=== PATIENT | male | born 1980 | race Caucasian/White ===

== ENCOUNTER 2022-01-29 04:32 | Inpatient (IN) | payer SELFPAY ==
[2022-01-29 04:41] VITALS: BP 121/82; PULSE 96; RESP 18; TEMP 36.7; O2SAT 96; BMI 28.5
--- NOTE | 2022-01-29 04:48 | W.ED.PSYCHS ---
HPI - Psych General: Chief Complaint: Psychiatric Symptoms Stated Complaint: MHE Time Seen by Provider: 01/29/22 04:43 Source: patient Mode of arrival: ambulatory Limitations: no limitations History of Present Illness: 41-year-old male he states that he has been severely depressed. He states his recently left him causing him depression and suicidal thoughts. He states he had a plan of taking pills to kill himself he has been admitted to psych hdez before he denies any worsening proving factors denies any attempts. Associated symptoms: Reports depression and suicidal ideation Review of Systems Const: Denies: fever(s), chills, body aches or change in appetite Eyes: Denies: blurry vision or eye discomfort ENMT: Denies: throat pain or dental pain Card: Denies: chest pain Resp: Denies: dyspnea GI: Denies: abdominal pain, nausea, vomiting or diarrhea : Denies: dysuria Musc: Denies: neck pain or back pain Skin/Breast: Denies: rash Neuro: Denies: headache(s) Psych: Reports: depression and suicidal ideation Finn/Lymph: Denies: easy bruising All/Imm: Denies: urticaria Physical Exam Const: COMMON NORMALS: patient oriented x3 HENMT: COMMON NORMALS: normocephalic and atraumatic HEAD & SCALP: normocephalic and atraumatic Eye: COMMON NORMALS: Equal, round and reactive pupils present and EOMs intact bilaterally PUPIL: Yes Equal, round and reactive pupils present Neck/C-Spine: COMMON NORMALS: full ROM and supple Chest: COMMONS NORMALS: normal inspection of the chest and normal palpation of entire chest wall Resp: COMMON NORMALS: normal respiratory effort, No retractions, No use of accessory muscles and clear to auscultation bilaterally AUSCULTATION: clear to auscultation bilaterally Cardio: COMMON NORMALS: regular rate, regular rhythm and No murmurs present (Cardio) RATE: regular rate RHYTHM: regular rhythm GI: COMMON NORMALS: Normal to inspection, nondistended, normoactive bowel sounds present, Soft to palpation, non-tender and no masses PALPATION: Yes Soft to palpation Extremity: COMMON NORMALS: normal to inspection and full ROM Neuro: COMMON NORMALS: patient oriented x3, moves all extremities and no focal motor deficits Psych: COMMON NORMALS: mental status grossly normal, Normal thought process present and cooperative THOUGHT PROCESS: Normal thought process present THOUGHT CONTENT: Yes Suicidality present Skin: COMMON NORMALS: no rashes or lesions noted and no wounds GENERAL SKIN EXAM: no rashes or lesions noted Course Vital Signs: Vital signs: Vital Signs Temperature 98.1 F 01/29/22 04:41 Pulse Rate 96 01/29/22 04:41 Respiratory Rate 18 01/29/22 04:41 Blood Pressure 121/82 01/29/22 04:41 Pulse Oximetry 96 01/29/22 04:41 Oxygen Delivery Me thod 01/29/22 04:41 MDM - Psych Medical Decision Making Patient presents here with suicidal ideation with plan of overdose on pills patient placed under 96-hour hold here he is medically cleared spoke to psychiatrist and will admit. Lab Data : 01/29/22 04:45 01/29/22 04:45 Laboratory Results WBC 10.8 10^3/uL (4.0-10.0) H 01/29/22 04:45 RBC 4.95 10^6/uL (4.1-5.3) 01/29/22 04:45 Hgb 14.9 g/dL (11.7-16.6) 01/29/22 04:45 Hct 45.2 % (42.0-52.0) 01/29/22 04:45 MCV 91.3 fl (80-94) 01/29/22 04:45 MCH 30.1 pg (28.0-34.0) 01/29/22 04:45 MCHC 33.0 g/dL (30.0-36.0) 01/29/22 04:45 RDW 12.0 % (12.1-15.1) L 01/29/22 04:45 Plt Count 301 10^3/cmm (130-400) 01/29/22 04:45 MPV 9.1 fL (7.4-10.4) 01/29/22 04:45 Neut % (Auto) 77.8 % 01/29/22 04:45 Lymph % (Auto) 14.0 % 01/29/22 04:45 [place] % (Auto) 7.1 % 01/29/22 04:45 Eos % (Auto) 0.3 % 01/29/22 04:45 Baso % (Auto) 0.6 % 01/29/22 04:45 Neut # (Auto) 8.39 10^3/uL (1.8-7.7) H 01/29/22 04:45 Lymph # (Auto) 1.5 10^3/uL (0.8-4.8) 01/29/22 04:45 [place] # (Auto) 0.8 10^3/uL (0.2-0.9) 01/29/22 04:45 Eos # (Auto) 0.0 10^3/uL (0.0-0.8) 01/29/22 04:45 Baso # (Auto) 0.1 10^3/uL (0.0-0.1) 01/29/22 04:45 Nucleated RBC % (auto) 0 % 01/29/22 04:45 Nucleated RBCs # 0.0 /100WBC 01/29/22 04:45 Discharge Plan Discharge Patient Disposition: Admitted As Inpatient Clinical Impression: Suicidal ideation Condition: Stable Coding Level of Care Code ED Lawn Mower Operator for Juvenal Fwd Exam Comprehensive
[2022-01-29 04:53] LABS: Basophils # 0.1 10^3/uL (0.0-0.1); Basophils % 0.6 %; Eosinophils % 0.3 %; Hematocrit 45.2 % (42.0-52.0); Hemoglobin 14.9 g/dL (11.7-16.6); Lymphocytes # 1.5 10^3/uL (0.8-4.8); Mean Corpuscular Hemoglobin 30.1 pg (28.0-34.0); Mean Corpuscular Volume 91.3 fl (80-94); Mean Platelet Volume 9.1 fL (7.4-10.4); Monocytes # 0.8 10^3/uL (0.2-0.9); Monocytes % 7.1 %; Neutrophils # 8.39 10^3/uL (1.8-7.7); Neutrophils % 77.8 %; Nucleated Red Blood Cells % 0 %; Platelet Count 301 10^3/cmm (130-400); Red Blood Count 4.95 10^6/uL (4.1-5.3); White Blood Count 10.8 10^3/uL (4.0-10.0)
[2022-01-29 05:27] LABS: Alanine Aminotransferase 10 U/L (0-41); Alkaline Phosphatase 64 U/L (40-130); Aspartate Amino Transferase 14 U/L (0-40); Blood Urea Nitrogen 13 mg/dL (6-20); Calcium 9.9 mg/dL (8.5-10.5); Carbon Dioxide 24 mmol/L (22-29); Chloride 98 mmol/L (98-107); Creatinine Clr Calc Pharmacy 129.3441; Globulin 2.4 g/dL (1.3-4.6); Glucose 103 mg/dL (65-115); Osmolality Calculated 284 mOsm/kg (285-295); Sodium 137 mmol/L (136-145); Total Bilirubin 0.7 mg/dL (0.15-1.2); Total Protein 7.4 g/dL (6.6-8.7)
[2022-01-29 05:30] LABS: Acetaminophen < 5.0 ug/mL (10-30); Alcohol Level < 10 mg/dL (0-10); Salicylate < 0.3 mg/dL (3-10)
[2022-01-29 05:38] LABS: Amphetamines Screen Urine Positive (Negative); Barbiturates Screen Urine Negative (Negative); Benzodiazepines Screen Urine Negative (Negative); Cocaine Screen Urine Negative (Negative); Opiate Screen Urine Negative (Negative); PCP Screen Urine Negative (Negative); THC Screen Urine Positive (Negative)
--- NOTE | 2022-01-29 07:32 | PC.PHAR ---
pt states he takes no rx or otc medications-no meds pull up on ext med history
[2022-01-29 08:46] VITALS: BP 98/73; PULSE 82; RESP 18; TEMP 36.6; O2SAT 97
[2022-01-29] MEDS: hyDROXYzine 25 mg Capsule 50 MG PO (09:23)
--- NOTE | 2022-01-29 09:23 | PC.NURSE ---
PRN VISTARIL 50 MG GIVEN PO PER PT C/O ANXIETY, TEARFUL UPON ADMIT, SAD STATED HIS JUST LEFT HIM
--- NOTE | 2022-01-29 09:40 | PC.ADMIT ---
[address] Admission Note: The patient,Fabio Lopes,41 y/o, was given written information regarding hospital policies, unit procedures and contact persons. Patient's smoking status: . Vital Signs - 8 hr 01/29/22 04:41 01/29/22 08:46 01/29/22 08:46 Temperature 98.1 F 98 F Pulse Rate 96 82 Respiratory Rate 18 18 Blood Pressure 121/82 98/73 ADMITTED FROM ER VIA WHEELCHAIR AND SECURITY AT 0846 AM. PT IS ON A 96 HOUR HOLD THAT ENDS 02/04/22 AT 846 AM. PT STATES HE IS HERE DUE TO HIS LEAVING HIM YESTERDAY AND HE BECAME INCREASINGLY DEPRESSED AND SUICIDAL. PT CONTINUES TO STATE I JUST WANT TO GO TO SLEEP AND NOT WAKE UP. THIS RN ASKED IF HE HAD A PLAN PT STATED NO JUST TO SLEEP. CURRENTLY DENIES HI AND AVH AT THIS TIME. ALLERGIC TO CARBAMAZEPINE. TAKES NO HOME MEDS. STATES HE WAS HERE IN THE NPU 20 YEARS BUT NO OTHER ADMISSIONS. PT SEES NO ONE FOR PSYCH SERVICES. PT WAS ORIENTATED TO UNIT. SKIN ASSESSMENT REVEALS MULTIPLE TATTOOS, NO SKIN ISSUES. ALL QUESTIONS ANSWERED AND SUPPORT VOICED. [ End ]Oxygen Delivery Method Room Air Room Air Room Air
[2022-01-29 14:00] VITALS: BP 106/73; PULSE 86; RESP 16; TEMP 36.6; O2SAT 98
--- NOTE | 2022-01-29 17:22 | W.PM.NPUH&PS ---
Providers/Chief Complaint Admitting Physician: Brijesh Mackenzie MD Chief Complaint: MHE HPI NPU History of Present Illness Fabio Lopes is a 41 year old male who presented to the emergency department with the following report: Chief Complaint: Psychiatric Symptoms Stated Complaint: MHE Time Seen by Provider: 01/29/22 04:43 Source: patient Mode of arrival: ambulatory Limitations: no limitations History of Present Illness: 41-year-old male he states that he has been severely depressed. He states his recently left him causing him depression and suicidal thoughts. He states he had a plan of taking pills to kill himself he has been admitted to psych hdez before he denies any worsening proving factors denies any attempts. Associated symptoms: Reports depression and suicidal ideation. He was admitted to the neuropsychiatric unit for definitive treatment of those issues. He was placed on a 96-hour hold. Patient presents today reporting that he has been inpatient previously about 13 years ago and is never really had outpatient services. He reports that he did have some services while in senior care when he took medication but denies really taking medication otherwise. He reports is not currently taking medicine now and that he is here secondary to a conflict with his . He reports that she left him and he started having suicidal thoughts. He was placed on a 96-hour hold secondary to concerns about him reporting suicidal thoughts with a plan. He presents to this interview essentially solely focused on getting discharged. He had to be redirected multiple times to focus on answering the questions instead of trying to litigate being discharged. Smokes about 2 packs of cigarettes a day, has alcohol and marijuana occasionally denies any other illicit drugs. He Downplaying his use and reporting that he had treatment there was a year-long in senior care for drug and alcohol treatment but denies any outpatient services denies having any DUIs did report some legal consequences a long time ago. It took significant coaxing to get him to speak about acknowledges that his addiction is current and that after dancing around that he acknowledges that there was a reason why his UDS was positive for amphetamines in addition to the cannabis. He reports that he started having difficulty in his teens he was experimenting with drugs with his friends and he reports that he ultimately started using different drugs and getting in trouble to some degree. He denies any history of suicide attempts reports that he had significant legal issues but currently reports he is fine and he had an epiphany and that he no longer wants to hurt himself. And is not interested in treatment and was to be discharged soon as possible. Psychiatric history: As above. Substance abuse history: As above. Family history: Patient denies mental health or addiction issues on either side of the family and denies suicide attempts or completions in the family. Developmental history: There were no problems with the , or delivery, learned to walk and talk and met developmental milestones on time, and denies need for learning support, emotional support or special education classes, but did report needing speech therapy in his youth. Psychosocial history: He reports his parents were together he was born and remained together. He has an older brother and sister share the same parents denies that he did his parents have any additional children. He reports his childhood was pretty good he denies emotional physical or sexual abuse CYS involvement he did get him placement with juvenile Justice for a week at 1 point in his teens. He dropped out a school athlete as well. Here but reports he got his GED endorsed being heterosexual with his loss related to being 16 years he is been officially 1 time is a 21-year-old daughter is never in the and denies any advent believes system. He reports that he is been employed in many different facets loss appointment was about 10 years overall. Currently lives in apartment and is recently left but his daughter's best friend and his girlfriend live there as well. Legal history: He reports multiple County and senior care stents the longest of which was 3-1/2 years. Medical history: Endorses psoriatic arthritis psoriasis and pain syndrome. Meds NPU Home Medications Medication Instructions Recorded Confirmed Last Taken Type No Known Home Medications 01/29/22 01/29/22 Unknown History Allergies Allergy/AdvReac Type Severity Reaction Status Date / Time carbamazepine [From Tegretol] Allergy ALGY-Rash,hive Verified 01/29/22 07:31 fever,vomiting Mental Status Exam MSE Comments: This is an overweight versus obese white male with in hospital scrubs with limited grooming and eye contact. No abnormal movements except for mild psychomotor agitation.. Cooperative with exam in no acute distress. Speech was slightly pressured. Mood described as pretty good, affect slightly irritable. Thought process organized, thought content: patient denies suicidal or homicidal ideation, there were no delusions reported or noted, she denied any auditory or visual hallucinations. Attention and concentration were intact and memory appeared reliable but none were formally tested. She?s alert and oriented times three. Insight and judgment appeared limited and impulse control appeared limited Vitals/I&O/Wt Last Vital Signs Temp 97.7 F 01/29/22 19:49 Pulse 85 01/29/22 19:49 Resp 16 01/29/22 19:49 BP 124/67 01/29/22 19:49 Pulse Ox 99 01/29/22 19:49 O2 Del Method 01/29/22 19:49 Weight last 48 hrs Weight 95.254 kg Data NPU : 01/29/22 04:45 01/29/22 04:45 A&P Assessment and plan (1) Suicidal ideation: Status: Acute (2) Methamphetamine abuse: Status: Acute (3) Cannabis abuse: Status: Acute (4) Adjustment disorder with mixed disturbance of emotions and conduct: Status: Acute Plan This is a 41-year-old white male with a history of anxiety and addiction with current active addiction who presents on a 96-hour hold after he reported to the emergency department with suicidal thoughts with his recently reporting she was leaving him. 1. Continue current medication. 2. Continue every 15 minute checks for safety. 3. Encourage individual, group and milieu therapies. 4. Encourage sober living treatment after discharge at the highest level of care to which he is willing to commit. 5. We will observe for safety under the context of the 96-hour hold. Involuntary Hold Information 96 Hour Hold: 96 Hour Involuntary Admission: Yes 96 Hour Hold Ending Date: 02/04/22 96 Hour Hold Ending Time: 08:46 Attestations NPU Medical Necessity Statement*: Inpatient hospitalization is medically necessary and the clinically appropriate intervention at this time. We will monitor medication to make changes as indicated. Patient will be in the hospital for over two midnights. Likely length of stay 2-4 days. Coding Level of Care Code Acute Ash Kier Boiler for Juvenal Velásquez Diagnoses Suicidal ideation R45.851 Methamphetamine abuse F15.10 Cannabis abuse F12.10 Adjustment disorder with mixed disturbance of emotions and conduct F43.25
[2022-01-29 19:49] VITALS: BP 124/67; PULSE 85; RESP 16; TEMP 36.5; O2SAT 99
[2022-01-30 06:00] VITALS: BP 113/72; PULSE 76; RESP 15; TEMP 36.5; O2SAT 97
--- NOTE | 2022-01-30 10:04 | PC.NURSE ---
PT DENIES SI/HI AND AVH AT THIS TIME. PT IS VERY ANXIOUS AND PACING HALLWAY WHILE CUSSING AT STAFF TELL THAT TO LET ME THE FUCK OUT OF HERE, I GOTTA GET MY LIFE TOGETHER AND I CAN'T DO IT WHILE I'M IN THIS FUCKING PLACE. PT WAS OFFERED ANXIETY MEDS BUT DECLINES STATING I DON'T WANT THAT SHIT I JUST NEED TO LEAVE. PT WAS VERBALLY REDIRECTED SEVERAL TIMES WITH LITTLE EFFECT. ALL QUESTIONS WERE ANSWERED ANS SUPPORT WAS VOICED.
[2022-01-30 14:00] VITALS: BP 122/77; PULSE 89; RESP 17; O2SAT 97
--- NOTE | 2022-01-30 15:52 | W.PM.NPUPNS ---
Subjective NPU Subjective: Patient presents today initially reporting that he was really upset with the treatment team, that we were not expecting him, and that we were essentially destroying his life. However starting in the late morning early afternoon you could see his continence change. He was in conversations with his significant other and he was being more reasonable on the phone. We later spoke and he was able to identify that his clearing coincided with the likely [employer] and that he has been speaking with his difficult other about changes that he needs and plans to make. We discussed the likelihood of discharge in the morning. Mental Status Exam MSE Comments: This is an overweight versus obese white male with in hospital scrubs with improved grooming and eye contact. No abnormal movements. Cooperative with exam in no acute distress. Speech was normal rate and volume. Mood described as much better, affect congruent. Thought process organized, thought content: patient denies suicidal or homicidal ideation, there were no delusions reported or noted, he denied any auditory or visual hallucinations. Attention and concentration were intact and memory appeared reliable but none were formally tested. He is alert and oriented times three. Insight and judgment appeared improving and impulse control appeared limited, but improving Vitals/I&O/Wt Last Vital Signs Temp 97.7 F 01/30/22 06:00 Pulse 89 01/30/22 14:00 Resp 17 01/30/22 14:00 BP 122/77 01/30/22 14:00 Pulse Ox 97 01/30/22 14:00 O2 Del Method 01/30/22 14:00 Data NPU : 01/29/22 04:45 01/29/22 04:45 A&P Assessment and plan (1) Suicidal ideation: Status: Acute (2) Methamphetamine abuse: Status: Acute (3) Cannabis abuse: Status: Acute (4) Adjustment disorder with mixed disturbance of emotions and conduct: Status: Acute Plan This is a 41-year-old white male with a history of anxiety and addiction with current active addiction who presents on a 96-hour hold after he reported to the emergency department with suicidal thoughts with his recently reporting she was leaving him. 1. Continue current medication. 2. Continue every 15 minute checks for safety. 3. Encourage individual, group and milieu therapies. 4. Encourage sober living treatment after discharge at the highest level of care to which he is willing to commit. 5. We will observe for safety under the context of the 96-hour hold. Tentative plan for discharge tomorrow. Involuntary Hold Information 96 Hour Hold: 96 Hour Involuntary Admission: Yes 96 Hour Hold Ending Date: 02/04/22 96 Hour Hold Ending Time: 08:46 Attestations NPU Medical Necessity Statement*: Inpatient hospitalization is medically necessary and the clinically appropriate intervention at this time. We will monitor medication to make changes as indicated. Likely length of stay 1-3 days. Coding Level of Care Code Acute Account Manager [employer] for Juvenal Fwd Diagnoses Suicidal ideation R45.851 Methamphetamine abuse F15.10 Cannabis abuse F12.10 Adjustment disorder with mixed disturbance of emotions and conduct F43.25
[2022-01-30 22:00] VITALS: RESP 18
[2022-01-31 06:00] VITALS: RESP 18
--- NOTE | 2022-01-31 09:17 | W.PM.NPUDCS ---
Diagnoses at Discharge Discharge Diagnosis (1) Suicidal ideation: Status: Resolved (2) Methamphetamine abuse: Status: Acute (3) Cannabis abuse: Status: Acute (4) Adjustment disorder with mixed disturbance of emotions and conduct: Status: Acute Reason for Visit Reason for Visit: MHE Brief History: History of Present Illness Fabio Lopes is a 41 year old male who presented to the emergency department with the following report: Chief Complaint: Psychiatric Symptoms Stated Complaint: MHE Time Seen by Provider: 01/29/22 04:43 Source: patient Mode of arrival: ambulatory Limitations: no limitations History of Present Illness:?? 41-year-old male he states that he has been severely depressed.? He states his recently left him causing him depression and suicidal thoughts.? He states he had a plan of taking pills to kill himself he has been admitted to psych hdez before he denies any worsening proving factors denies any attempts. Associated symptoms: Reports depression and suicidal ideation. He was admitted to the neuropsychiatric unit for definitive treatment of those issues.? He was placed on a 96-hour hold.? Patient presents today reporting that he has been inpatient previously about 13 years ago and is never really had outpatient services.? He reports that he did have some services while in retirement when he took medication but denies really taking medication otherwise.? He reports is not currently taking medicine now and that he is here secondary to a conflict with his .? He reports that she left him and he started having suicidal thoughts.? He was placed on a 96-hour hold secondary to concerns about him reporting suicidal thoughts with a plan.? He presents to this interview essentially solely focused on getting discharged.? He had to be redirected multiple times to focus on answering the questions instead of trying to litigate being discharged.? Smokes about 2 packs of cigarettes a day, has alcohol and marijuana occasionally denies any other illicit drugs.? He Downplaying his use and reporting that he had treatment there was a year-long in retirement for drug and alcohol treatment but denies any outpatient services denies having any DUIs did report some legal consequences a long time ago.? It took significant coaxing to get him to speak about acknowledges that his addiction is current and that after dancing around that he acknowledges that there was a reason why his UDS was positive for amphetamines in addition to the cannabis.? He reports that he started having difficulty in his teens he was experimenting with drugs with his friends and he reports that he ultimately started using different drugs and getting in trouble to some degree.? He denies any history of suicide attempts reports that he had significant legal issues but currently reports he is fine and he had an epiphany and that he no longer wants to hurt himself.? And is not interested in treatment and was to be discharged soon as possible. Psychiatric history: As above. Substance abuse history: As above. Family history: Patient denies mental health or addiction issues on either side of the family and denies suicide attempts or completions in the family. Developmental history: There were no problems with the , or delivery, learned to walk and talk and met developmental milestones on time, and denies need for learning support, emotional support or special education classes, but did report needing speech therapy in his youth. Psychosocial history: He reports his parents were together he was born and remained together.? He has an older brother and sister share the same parents denies that he did his parents have any additional children.? He reports his childhood was pretty good he denies emotional physical or sexual abuse CYS involvement he did get him placement with juvenile Justice for a week at 1 point in his teens.? He dropped out a school athlete as well.? Here but reports he got his GED endorsed being heterosexual with his loss related to being 16 years he is been officially 1 time is a 21-year-old daughter is never in the and denies any adventism believes system.? He reports that he is been employed in many different facets loss appointment was about 10 years overall.? Currently lives in apartment and is recently left but his daughter's best friend and his girlfriend live there as well. Legal history: He reports multiple County and retirement stents the longest of which was 3-1/2 years. Medical history: Endorses psoriatic arthritis psoriasis and pain syndrome. Hospital Course Hospital Course He slowly acclimated to the individual, group and milieu therapy provided. We did not start any medications during the stay. Initially he was quite resistant to discussing his addiction and spent most of his time focusing on the relationship with his significant other and where that stood. As his withdrawal resolved he started becoming more astute to his situation and was also able then to have more meaningful effective conversations with his significant other. He was able to have better insight into the situation that he has created. He had marked improvement from his presentation and was able to contract for safety outside of the hospital prior to discharge. During the hospitalization, patient had routine laboratory studies which were within normal limits except for few outliers. Additionally there was a general medical evaluation which was also within normal limits and revealed no new acute processes. Discharge Summary: At the time of discharge, not psychosis or lethality. Mood and anxiety were well managed. Patient endorsed a plan to avoid all drugs of abuse and follow-up with the aftercare recommendations of the treatment team. Patient was evaluated and deemed to be absent credible lethality, and had achieved the maximum benefit from an inpatient hospitalization, so was discharged. Involuntary Hold Information 96 Hour Hold: 96 Hour Involuntary Admission: Yes 96 Hour Hold Ending Date: 02/04/22 96 Hour Hold Ending Time: 08:46 Mental Status Exam MSE Comments: This is an overweight versus obese white male with in hospital scrubs with improved grooming and eye contact. No abnormal movements. Cooperative with exam in no acute distress. Speech was normal rate and volume. Mood described as much better, affect congruent. Thought process organized, thought content: patient denies suicidal or homicidal ideation, there were no delusions reported or noted, he denied any auditory or visual hallucinations. Attention and concentration were intact and memory appeared reliable but none were formally tested. He is alert and oriented times three. Insight and judgment appeared improving and impulse control appeared limited, but improving Discharge Data Studies Completed and Pending: Laboratory Results WBC 10.8 10^3/uL (4.0 -10.0) H 01/29/22 04:45 RBC 4.95 10^6/uL (4.1 -5.3) 01/29/22 04:45 Hgb 14.9 g/dL (11.7-1 6.6) 01/29/22 04:45 Hct 45.2 % (42.0-52.0 ) 01/29/22 04:45 MCV 91.3 fl (80-94) 01/29/22 04:45 MCH 30.1 pg (28.0-34. 0) 01/29/22 04:45 MCHC 33.0 g/dL (30.0-3 6.0) 01/29/22 04:45 RDW 12.0 % (12.1-15.1 ) L 01/29/22 04:45 Plt Count 301 10^3/cmm (130 -400) 01/29/22 04:45 MPV 9.1 fL (7.4-10.4) 01/29/22 04:45 Neut % (Auto) 77.8 % 01/29/22 04:45 Lymph % (Auto) 14.0 % 01/29/22 04:45 [place] % (Auto) 7.1 % 01/29/22 04:45 Eos % (Auto) 0.3 % 01/29/22 04:45 Baso % (Auto) 0.6 % 01/29/22 04:45 Neut # (Auto) 8.39 10^3/uL (1.8 -7.7) H 01/29/22 04:45 Lymph # (Auto) 1.5 10^3/uL (0.8- 4.8) 01/29/22 04:45 [place] # (Auto) 0.8 10^3/uL (0.2- 0.9) 01/29/22 04:45 Eos # (Auto) 0.0 10^3/uL (0.0- 0.8) 01/29/22 04:45 Baso # (Auto) 0.1 10^3/uL (0.0- 0.1) 01/29/22 04:45 Nucleated RBC % (a uto) 0 % 01/29/22 04:45 Nucleated RBCs # 0.0 /100WBC 01/29/22 04:45 Sodium 137 mmol/L (136-1 45) 01/29/22 04:45 Potassium 4.0 mmol/L (3.5-5 .1) 01/29/22 04:45 Chloride 98 mmol/L (98-107 ) 01/29/22 04:45 Carbon Dioxide 24 mmol/L (22-29) 01/29/22 04:45 Anion Gap 19.0 (5-19) 01/29/22 04:45 BUN 13 mg/dL (6-20) 01/29/22 04:45 Creatinine 0.9 mg/dL (0.7-1. 2) 01/29/22 04:45 GFR Calculation 93.0 mL/min (90-1 30) 01/29/22 04:45 Glucose 103 mg/dL (65-115 ) 01/29/22 04:45 Calculated Osmolal ity 284 mOsm/kg (285- 295) L 01/29/22 04:45 Calcium 9.9 mg/dL (8.5-10 .5) 01/29/22 04:45 Total Bilirubin 0.7 mg/dL (0.15-1 .2) 01/29/22 04:45 AST 14 U/L (0-40) 01/29/22 04:45 ALT 10 U/L (0-41) 01/29/22 04:45 Alkaline Phosphata se 64 U/L (40-130) 01/29/22 04:45 Total Protein 7.4 g/dL (6.6-8.7 ) 01/29/22 04:45 Albumin 5.0 g/dL (3.5-5.2 ) 01/29/22 04:45 Globulin 2.4 g/dL (1.3-4.6 ) 01/29/22 04:45 Salicylates < 0.3 mg/dL (3-10 ) L 01/29/22 04:45 Urine Opiates Scre en Negative ng/mL (N egative) 01/29/22 05:25 Acetaminophen < 5.0 ug/mL (10-3 0) L 01/29/22 04:45 Ur Barbiturates Sc reen Negative ng/mL (N egative) 01/29/22 05:25 Ur Phencyclidine S crn Negative ng/mL (N egative) 01/29/22 05:25 Ur Amphetamines Sc reen Positive ng/mL (N egative) H 01/29/22 05:25 U Benzodiazepines Scrn Negative ng/mL (N egative) 01/29/22 05:25 Urine Cocaine Scre en Negative ng/mL (N egative) 01/29/22 05:25 U Marijuana (THC) Screen Positive ng/mL (N egative) H 01/29/22 05:25 Ethyl Alcohol < 10 mg/dL (0-10) 01/29/22 04:45 Vitals: Last Vital Signs Temp 97.7 F 01/30/22 06:00 Pulse 89 01/30/22 14:00 Resp 18 01/31/22 06:00 BP 122/77 01/30/22 14:00 Pulse Ox 97 01/30/22 14:00 O2 Del Method 01/30/22 14:00 Discharge Plan Discharge Patient Disposition: Home Condition: Stable Prescriptions: No Action No Known Home Medications Discharge Orders: Discharge Order (Routine); Ordered 01/31/22 Ordered By: Brijesh Mackenzie Referrals: [facility] [place] [facility] [Outside] - 02/05/22 1:30 pm (Initial assessment for [facility] services) Discharge Diet: Regular Discharge Activity: Resume usual activity Patient Instructions: Methamphetamine Use Disorder (DC), Suicide Prevention (DC), Opioid Safety Discharge Attestations NPU Time Spent in Discharge Care*: less than 30 min Specific Discharge Activities: Specific discharge activities: educating patient, discussing with geriatric case manager/social workers/dc planners, documenting/other paperwork and evaluating patient/reviewing data Coding Level of Care Code Acute Chg FW DC note Diagnoses Suicidal ideation R45.851 Methamphetamine abuse F15.10 Cannabis abuse F12.10 Adjustment disorder with mixed disturbance of emotions and conduct F43.25
[2022-01-31 09:57] VITALS: RESP 18
== END 2022-01-31 10:04 | disposition home or self-care (01) | DRG 882 ==
LOC: ER 04:50 → NP 11:17
PROVIDERS: Admitting Provider Psychiatry & Neurology Psychiatry; Emergency Provider Emergency Medicine; Visit Provider Psychiatry & Neurology Psychiatry
DX: F43.25 Adjustment disorder with mixed disturbance of emotions and conduct (principal); R45.851 Suicidal ideations; F32.A Depression, unspecified; Z63.0 Problems in relationship with spouse or partner; F17.210 Nicotine dependence, cigarettes, uncomplicated; F10.10 Alcohol abuse, uncomplicated; F12.10 Cannabis abuse, uncomplicated; F15.10 Other stimulant abuse, uncomplicated; L40.50 Arthropathic psoriasis, unspecified; G89.4 Chronic pain syndrome
CPT/HCPCS: 80053; 80306; 80307; 85025; 97150; 97165; 99285

== ENCOUNTER 2023-05-30 17:30 | Emergency (ER) | payer SELFPAY ==
[2023-05-30 17:31] VITALS: BP 132/84; PULSE 86; RESP 16; TEMP 36.6; O2SAT 98
[2023-05-30] MEDS: clindamycin 150 mg Capsule 300 MG PO (18:20)
[2023-05-30] MEDS: ketorolac 60 mg/2 mL INJ IM (18:21)
[2023-05-30] MEDS: lidocaine 2% viscous 15 mL UDC 10 ML MUCOUS MEM (18:21)
--- NOTE | 2023-05-30 19:08 | W.ED.DENTAL ---
HPI - Dental/Oral General: Chief complaint: Dental/Oral Stated complaint: cheek swollen Time Seen by Provider: 05/30/23 17:41 Source: patient and family Mode of arrival: ambulatory Limitations: no limitations History of Present Illness: Patient presents emergency department today for evaluation treatment of left lower jaw swelling and dental infection. Patient noticed onset of symptoms about 24 to 36 hours ago. He has had issues with dental infections on the left jawline in the past. He states when he started having swelling he took an antibiotic from a friend of his but he is not sure what it is. He denies fevers. He is still eating and drinking. He denies any current dental care. Review of Systems General: Reports: 10 or more systems reviewed and unremarkable except in HPI and below Physical Exam Const: COMMON NORMALS: no acute distress, patient oriented x3 and alert HENMT: OTHER: Patient with mild jaw swelling noted to the left lower jawline. No discoloration of the overlying skin on the face. Gumline is swollen and erythematous without signs of active draining or bleeding along the left mid lower gumline. Multiple broken and carried teeth. Eye: COMMON NORMALS: Equal, round and reactive pupils present, EOMs intact bilaterally and conjunctivae normal CONJUNCTIVA: Yes conjunctivae normal PUPIL: Yes Equal, round and reactive pupils present Neck/C-Spine: COMMON NORMALS: no JVD Lymph: LYMPHATIC: no lymphadenopathy noted Resp: COMMON NORMALS: normal respiratory effort, No retractions and No use of accessory muscles Cardio: COMMON NORMALS: no JVD and regular rate RATE: regular rate : COMMON NORMALS: Yes no CVA tenderness BLADDER/KIDNEY EXAM: Yes no CVA tenderness Back/Pelvis: COMMON NORMALS: no CVA tenderness, thoracic and lumbar spine normal to inspection and thoraco-lumbar ROM normal Extremity: COMMON NORMALS: normal to inspection, full ROM and no pedal edema Neuro: COMMON NORMALS: patient oriented x3 SENSORIUM/ORIENTATION: Yes alert Skin: COMMON NORMALS: no rashes or lesions noted and turgor normal GENERAL SKIN EXAM: no rashes or lesions noted and turgor normal Course Vital Signs: Vital signs: Vital Signs Temperature 97.9 F 05/30/23 17:31 Pulse Rate 86 05/30/23 17:31 Respiratory Rate 16 05/30/23 17:31 Blood Pressure 132/84 05/30/23 17:31 Pulse Oximetry 98 05/30/23 17:31 Oxygen Delivery Me thod Room Air 05/30/23 17:31 MDM - Dental/Oral Medical Decision Making Patient presents today with developing dental infection. Given the time of night we are providing him his first dose of antibiotic here along with some medication to help with pain. Continue treatment was ordered for him to be picked up and continued in the morning. Also, dental resources were provided to him as we discussed more definitive management by seeing a dentist in the future. Patient verbalizes understanding and agreement to treatment plan. Differential Diagnosis Likely dental caries, toothache and dental abscess; Unlikely gingival abscess, fracture of tooth or aphthous ulcer No radiology studies performed this visit Discharge Plan Discharge Patient Disposition: Home Clinical Impression: Dental abscess Condition: Stable Prescriptions: New clindamycin HCl 300 mg capsule 300 mg PO Q6H 10 Days Qty: 40 0RF ibuprofen 800 mg tablet 800 mg PO Q8H PRN (Reason: pain) Qty: 21 0RF Discharge Orders: Discharge ED (Routine); Ordered 05/30/23 Ordered By: Carissa Mojica Discharge Diet: Soft Mechanical Discharge Activity: Resume usual activity Patient Instructions: Dental Abscess (ED) Activity Restrictions/Additional Instructions: Evaluation does show concerns for a dental abscess. We are giving you your own prescription for antibiotics which is frequently used for dental infections. Take the medication as prescribed in its entirety. You are also provided you from dental resources as more definitive management of your infection may be required with a dental visit. Stand Alone Forms: Work/School Release Coding Level of Care Code ED Side Piece Coverer for Juvenal Velásquez
== END 2023-05-30 18:29 | disposition home or self-care (01) ==
PROVIDERS: Emergency Provider Physician Assistant
DX: K04.7 Periapical abscess without sinus (principal)
CPT/HCPCS: 96372; 99284; J1885